=== PATIENT | female | born 1975 | race Asian ===

== ENCOUNTER → 2017-03-20 | Outpatient (CLI) | payer BC ==
--- NOTE | 2017-03-21 08:11 | MAMMOGRAPHY REPORT ---
BILATERAL DIGITAL DIAGNOSTIC MAMMOGRAM TOMOSYNTHESIS WITH CAD AND TARGETED BILATERAL ULTRASOUND: 03/20 CLINICAL HISTORY: 41 year-old woman presents with intermittent discomfort and pressure in the lateral left breast for a few months. No skin erythema, nipple discharge or palpable mass. Family history of breast cancer = maternal aunt. Baseline mammograms. TECHNIQUE: Bilateral breast tomosynthesis in addition to standard 2D mammography was performed. Curre nt study was also evaluated with a Computer Aided Detection (CAD) system. COMPARISON: No prior exams were available for comparison. BREAST COMPOSITION: The tissue of both breasts is heterogeneously dense, which may obscure small mas ses. FINDINGS: There is a well-circumscribed 6.2 x 7.2 mm mass in the superior right breast, only seen on the MLO view (tomosynthesis slice 17/65). No associated architectural distortion or calcification. There is an asymmetry in the middle one third of the right breast, slightly inferior to the posterio r nipple line on the MLO view, which may project laterally based on the CC view (tomosynthesis slice 23/68), measuring 8.4 mm. No associated architectural distortion or calcification. No other suspici ous calcifications, areas of distortion or asymmetry are identified in the right breast. No suspicious masses, calcifications, areas of distortion or asymmetry is identified in the left [address]. No focal skin thickening or nipple retraction bilaterally. Targeted ultrasound was performed in the area of pain pointed out by the patient (1:00 left breast ap proximately 3 cm from the nipple), and also throughout the 12:00, 2:00 and 3:00 axes of the left [address]. Sonographically normal tissue is seen without a suspicious solid or cystic mass. Ultrasound was also performed in the right breast to evaluate for the mass and asymmetry seen mammogr aphically. In the right 9:00 breast, 4 cm from the nipple, there is an oval parallel hypoechoic circ umscribed solid-appearing mass measuring 4.8 x 2.6 x 5.1 mm. An oval parallel circumscribed hypoecho ic solid versus cystic mass is identified in the 8:00 right breast, 5 cm from the nipple, measuring 4 .3 x 1.9 x 4.7 mm. Another circumscribed oval hypoechoic solid mass is identified in the 10:00 right breast, 8 cm from the nipple, measuring 6.5 x 3.7 x 5.1 mm. There is a linear echogenic septum with in and this could possibly represent a lymph node. If so it has a thickened cortex and is indetermin ate. Definitive characterization with tissue sampling is recommended. At that time ultrasound guide d core biopsy could also be performed of the indeterminate solid-appearing mass in the 9:[address] IMPRESSION: ACR BI-RADS CATEGORY 4: SUSPICIOUS, TARGETED ULTRASOUND ACR BI-RADS CATEGORY 4: SUSPICIO US 1. Ultrasound guided core biopsy is recommended for an indeterminate solid mass in the 10:00 right b reast, and a second indeterminate solid mass in the 9:00 right breast. A smaller solid versus cystic mass in the 8:00 right breast could be followed in 6 months, pending benign pathology results in the 9:00 and 10:00 axes. Also, correlation with postprocedure mammograms is recommended to assess for m ammographicsonographic correlation of the above described mass and asymmetry. 2. No suspicious mammographic or sonographic abnormality or evidence of malignancy in the left breas t with particular attention to the area of intermittent discomfort and pressure in the left 1:[address] Therefore, clinical follow-up is recommended. These results and recommendations were discussed with the patient and her at the time of the exam. She tentatively scheduled the right breast biopsies prior to leaving our department. Approximately 10% of breast cancers are not detected with mammography. A negative mammographic report should not delay biopsy if a clinically suggestive mass is present. Misty Scott M.D. ay/:03/20/2017 13:44:30 Machine Lead Burner: Althea MACIAS(Sharita)(M), letter sent: Abnormal 4/5 BI-RADS Code: ACR BI-RADS Category 4: Suspicious Ultrasound BI-RADS: ACR BI-RADS Category 4: Suspici ous
== END | disposition home or self-care (01) ==
LOC: C.MAMM 10:35
PROVIDERS: ATTEND Family Medicine
DX: N63 Unspecified lump in breast (principal)

== ENCOUNTER → 2017-03-28 | Outpatient (CLI) | payer BC ==
--- NOTE | 2017-03-28 13:34 | Discharge Instructions ---
Discharge Instructions Procedure Procedure Date: Mar 28, 2017. Reason for visit: Right Masses. Discharge Discharge Date: Mar 28, 2017. Discharge Diagnosis: post right breast ultrasound guided core biopsy x 2 Instructions Activity Recommendations: Additional Limitations (see below) Return to School/Work: no limitations Recommended Home Diet: No Limitations Provider Instructions: ACTIVITY RECOMMENDATIONS: * No lifting, pushing, pulling or exercising the affected side for three days. RETURN TO SCHOOL/WORK: * You may return to work/school after the procedure, but do not perform any strenuous activities for 24 to 48 hours. MEDICATIONS: * Tylenol (two 325 mg) every four to six hours if needed for mild pain (if not allergic to Tylenol). DIET: * Resume previous diet. SPECIAL CARE INSTRUCTIONS: * Keep biopsy site dry for 24 hours. May shower after 24 hours, but do not soak (bathe) incision. * May remove Tegaderm (plastic patch) tomorrow AFTER showering. * Leave the steri-strips on for one week. Allow the steri-strips to fall off by themselves. If not off after one week, you may remove them. You may place a Bandaid crosswise over the strips, if desired. * Apply ice 10 minutes on and 10 minutes off as needed. * Wear a bra at bedtime to sleep more comfortably for 2-3 days. * Your referring physician should have the results after approximately 5 to 7 business days. * Call for unusual bleeding, fever, drainage, etc or if you have any questions call [phone] during normal business hours or after hours call Dr Scott, . FOLLOW UP VISIT: Follow-up with Referring Physician as scheduled. Lissette Samaniego Recommendations: Call your doctor if: * Temperature above 101 degrees * Pain not relieved by pain medicine ordered * There is increased drainage or redness from any incision * You have any unanswered questions or concerns. Your Doctors Instructions noted above were prepared by provider Misty Scott. Patient Signature Section: Patient Instructions Signature Page Meng Epps Patient (or Guardian) Signature/Date: I have read and understand the instructions given to me by my caregivers. Caregiver/RN/Doctor Signature/Date: The above-named patient and/or guardian has received patient instructions on this date. + Original Patient Signature Page (only) stays with chart. Please make copy for patient.
--- NOTE | 2017-03-28 15:28 | MAMMOGRAPHY REPORT ---
THIS REPORT HAS BEEN AMENDED. MULTIPLE ULTRASOUND GUIDED BIOPSIES RIGHT BREAST: 03/28/2017 CLINICAL HISTORY: 41 year-old woman with 2 indeterminate masses identified in the 9:00 and 10:00 axes of the right breast on baseline evaluation. She presents for ultrasound guided core biopsy 2. Jaimie or to the biopsy she reported pain again in the upper inner quadrant of the left breast, for which ta rgeted ultrasound was performed prior to biopsy. COMPARISON: Comparison is made to exams dated: 03/20/2017 ultrasound and 03/20/2017 mammogram - [facility]. PATIENT CONSENT: The procedure, risks and benefits were discussed with the patient and informed conse nt was obtained both verbally and in writing. Specific risks to this procedure include: bleeding, in fection, puncture of adjacent structure, nontarget biopsy, sampling error, pain, metal allergy and me dication reaction. ULTRASOUND LEFT BREAST: Prior to the right breast biopsies, targeted ultrasound was performed in the 11:00, 10:00 and 12:00 axes in the areas of pain pointed out by the patient. In the 11:00 axis, 5 cm from the nipple, there is an oval parallel hypoechoic solid versus cystic mass measuring 4.4 x 2.5 x 5.0 mm. This most likely represents a collapsing cyst, and may be contributing to the patient's sym ptoms. However, a six-month follow-up targeted ultrasound is recommended to ensure stability. PROCEDURE DESCRIPTION: A time out was performed and the right breast was agreed as the site of biopsy . The skin was prepped and draped in the usual sterile fashion. First, the oval parallel hypoechoic solid versus cystic mass in the 9:00 right breast was chosen as the target for biopsy. Subcutaneous a nd intraparenchymal 1% buffered lidocaine, with and without epinephrine, was administered as local an esthesia. A skin incision was made. Through the incision, 3 samples were taken with a 14 gauge Achie ve biopsy device. The mass nearly completely resolved after the third biopsy sample. A ribbon shape d metallic marker was placed at the biopsy site. Hemostasis was achieved after manual compression. Th e patient tolerated the procedure well and there was no immediate complication. Second, the hypoechoic solid versus cystic mass versus lymph node in the 10:00 right breast was ident ified and targeted for biopsy. A small skin incision was made and through the incision 3 core biopsy samples were obtained with a 14-gauge achieve biopsy device. A ring shaped metallic marker was plac ed at the biopsy site. Hemostasis was achieved after manual compression. The patient tolerated the pr ocedure well and there was no immediate complication. All of the samples were sent to the pathology department in appropriately labeled containers. Postprocedure right CC and ML tomosynthesis images were obtained. New ribbon and wing-shaped biopsy marker clips are seen in the upper outer middle to posterior right breast, denoting the site of biops y. The wing-shaped marker correlates with the superior nodular asymmetry versus mass in question. A n asymmetry just below the posterior nipple line on the MLO view is less prominent and could simply r epresent normal fibroglandular tissue. However, pending benign pathology results, would recommend fo llow-up bilateral tomosynthesis mammograms and repeat targeted ultrasound in the left 11:00 and right breast to ensure stability. IMPRESSION: ULTRASOUND GUIDED BIOPSY Status post ultrasound guided core biopsy of indeterminate solid-appearing masses in the 9:00 and 10: 00 axes of the right breast, with biopsy markers placed at each site. Pending benign pathology results, bilateral diagnostic tomosynthesis mammograms and repeat targeted u ltrasound in the left 11:00 and possible right breast is recommended to ensure stability in 6 months. The patient will receive notification of the biopsy results from her referring physician. Misty Scott M.D. ay/:03/28/2017 13:52:54 Cloth Seconds Sorter: Lupe JO (R)), [facility] AMENDMENT: 04/04/2017 Mitsy Scott M.D. Pathology results from the ultrasound-guided core biopsies in the right breast became available for frantz rodriguez. The biopsy of a mass in the 9:00 right breast yielded fibrocystic change with apocrine metapl shante. Biopsy of a solid mass in the 10:00 right breast yielded a benign appearing lymph node with mi ld pericardial hyperplasia. The pathology results from both biopsies are concordant with the imaging appearance. It should be noted that neither of these masses or biopsy marker clips aligned with an asymmetry along the posterior nipple line on the MLO view. Therefore, six-month follow-up right diag nostic tomosynthesis mammograms and repeat targeted ultrasound of the 8:00 axis is recommended. letter sent: Follow Up Recommended 3
--- NOTE | 2017-03-28 15:28 | MAMMOGRAPHY REPORT ---
ULTRASOUND GUIDED BIOPSY: 03/28/2017 CLINICAL HISTORY: 2 indeterminate solid appearing masses in the 9:00 and 10:00 axes of the right j[address]. Patient presents for ultrasound-guided core biopsy 2. Please refer to the report from right breast ultrasound guided core biopsy performed at the same time for full detail. IMPRESSION: ULTRASOUND GUIDED BIOPSY Please refer to the report from right breast ultrasound guided core biopsy performed at the same time for full detail. Misty Scott M.D. ay/:03/28/2017 13:35:37 Underground Electrician: Lupe MACIAS(Sharita)(M), [facility]
--- NOTE | 2017-03-28 15:30 | MAMMOGRAPHY REPORT ---
UNILATERAL RIGHT DIGITAL DIAGNOSTIC MAMMOGRAM TOMOSYNTHESIS: 03/28/2017 CLINICAL HISTORY: 2 indeterminate masses in the 9:00 and 10:00 axes of the right breast. Patient pre sented for ultrasound-guided core biopsy 2. Please refer to the report from right breast ultrasound guided core biopsy performed at the same time for full detail. IMPRESSION: POST PROCEDURE IMAGING FOR MARKER PLACEMENT Please refer to the report from right breast ultrasound guided core biopsy performed at the same time for full detail. Approximately 10% of breast cancers are not detected with mammography. A negative mammographic report should not delay biopsy if a clinically suggestive mass is present. Misty Scott M.D. ay/:03/28/2017 13:36:43 Patient Financial Counselor: Lupe MACIAS(Sharita)(Josue), [facility] BI-RADS Code: Post Procedure Imaging For Marker Placement
== END | disposition home or self-care (01) ==
LOC: C.MAMM 12:33
PROVIDERS: ATTEND Family Medicine
DX: N63 Unspecified lump in breast (principal); R59.9 Enlarged lymph nodes, unspecified